=== PATIENT | male | born 1985 | race African-American/Black ===

== ENCOUNTER 2019-03-24 17:51 | Observation (INO) ==
[2019-03-24] MEDS ORDERED: hydrALAZINE 20 MG/1 ML VIAL IV STA (18:24)
[2019-03-24] MEDS ORDERED: MORPHINE 4 MG/1 ML VIAL IV STA (18:24)
[2019-03-24] MEDS ORDERED: FUROSEMIDE 40 MG/4 ML VIAL IV STA (18:24)
[2019-03-24] MEDS ORDERED: ASPIRIN 325 MG TABLET PO STA (18:24)
[2019-03-24] MEDS ORDERED: NITROGLYCERIN 2% OINT 1 INCH/GM PACK TOP STA (18:24)
[2019-03-24] MEDS ORDERED: ONDANSETRON 4 MG/2 ML VIAL IV STA (18:24)
[2019-03-24 19:06] LABS: Eosinophils # 0.2 10*3/uL (0.0-0.87); Eosinophils % 3.9 % (0.00-10.9); Hematocrit 37.8 VOL% (42.0-52.0); Hemoglobin 12.1 GM/DL (14.0-18.0); Immature Granulocytes Absolute 0.33 #; Lymphocytes % 25.1 % (21.2-54.2); Monocytes % 19.8 % (1.7-12.7); Neutrophils % 42.2 % (38.7-73.9); Platelet Count 66 T/CUMM (130-400); Red Cell Distribution Width 15.9 % (9.3-17.3); White Blood Count 4.2 T/CUMM (4-12)
[2019-03-24 19:19] LABS: Albumin 2.6 G/DL (3.4-5.0); Bilirubin,Total 9.7 MG/DL (0.2-1.0); Calcium 8.6 MG/DL (8.5-10.1); Osmolality,Calculated 275.5 MOS/KG (273-304); Total Protein 7.6 G/DL (6.4-8.3)
[2019-03-24 19:26] LABS: INR 1.3; PT Patient Result 14.3 SECS (9.6-12.2)
[2019-03-24 20:36] LABS: Eosinophils 5 % (0-10); Lymphocytes 27 % (20-55); Segmented Neutrophils 48 % (50-85); Total Cells Counted 100
[2019-03-24 20:37] LABS: Hypochromasia 2+; Platelet Estimate Adequate; Toxic Granulation 1+
[2019-03-24 20:38] LABS: Anisocytosis Slight; Polychromasia 1+
[2019-03-24 20:39] LABS: Reactive Lymphocytes 2+
[2019-03-24 21:01] LABS: Apearance,Urine CLEAR (Clear); Bacteria,Urine Occasional /HPF (Few); Bilirubin,Urine Negative (Negative); Blood, Urine Negative (Negative); Glucose,Urine (UA) Negative (Negative); Ketones,Urine Negative (Negative); Nitrite,Urine Negative (Negative); Protein,Urine Negative; RBC,Urine <1 /HPF (0-4); Squamous Epithelial Cell,Urine Occasional /HPF (0-10); Urine Color Yellow (Yellow); Urine Specific Gravity 1.012 (1.001-1.035); Urine Urobilinogen < 2.0 EU/DL (0.2-1.0); WBC,Urine <1 /HPF (0-6)
[2019-03-24 22:44] LABS: Hepatitis B Core IgM Quant 0.05 Index; Hepatitis B Surface Ag Quant < 0.10 Index; Hepatitis B Surface Ag Result Negative (Negative); Hepatitis C Virus Ab Quant 0.31 Index; Hepatitis C Virus Ab Result Negative (Negative)
[2019-03-24] MEDS ORDERED: ONDANSETRON 4 MG/2 ML VIAL IV PRN (23:03)
[2019-03-24] MEDS ORDERED: LABETALOL 20 MG/4 ML SYRINGE IV PRN (23:12)
[2019-03-25 07:50] LABS: Albumin 2.1 G/DL (3.4-5.0); Calcium 8.1 MG/DL (8.5-10.1); Osmolality,Calculated 274.5 MOS/KG (273-304); Total Protein 6.5 G/DL (6.4-8.3)
[2019-03-25] MEDS: FUROSEMIDE 40 MG/4 ML VIAL IV SCH (09:51)
[2019-03-25] MEDS: PANTOPRAZOLE 40 MG TABLET PO SCH (09:51)
[2019-03-25 13:13] LABS: Ferritin 248.8 ng/ml (26-388)
[2019-03-25] MEDS ORDERED: IBUPROFEN 800 MG TABLET PO PRN (17:54)
[2019-03-26 05:23] LABS: Albumin 2.1 G/DL (3.4-5.0); Bilirubin,Total 7.6 MG/DL (0.2-1.0); Calcium 7.8 MG/DL (8.5-10.1); Osmolality,Calculated 277.5 MOS/KG (273-304); Total Protein 6.7 G/DL (6.4-8.3)
[2019-03-26 08:27] VITALS: BP 143/72
[2019-03-26] MEDS: FUROSEMIDE 40 MG/4 ML VIAL IV SCH (09:13)
[2019-03-26] MEDS: PANTOPRAZOLE 40 MG TABLET PO SCH (09:13)
[2019-03-29 14:31] LABS: Mitochondrial Antibody (M2) <0.1 U
[2019-04-01 13:21] LABS: Smooth Muscle Antibody Positive 1:40 (Negative)
== END 2019-03-26 10:15 | disposition home or self-care (01) ==
LOC: N.ED 17:51 → N.EDINP 17:51 → N.2W 23:26
PROVIDERS: ADMIT Hospitalist; ATTEND Hospitalist

== ENCOUNTER 2019-07-28 19:20 | Inpatient (IN) ==
[2019-07-28 20:59] LABS: Basophils # 0.1 10*3/uL (0.0-0.2); Basophils % 0.4 % (0.0-0.8); Eosinophils % 25.4 % (0.00-10.9); Hematocrit 45.3 VOL% (42.0-52.0); Immature Granulocytes Absolute 0.12 #; Lymphocytes # 0.7 10*3/uL (1.4-4.0); Lymphocytes % 5.8 % (21.2-54.2); Mean Corpuscular HGB Conc 29.4 GM/DL (32-36); Mean Corpuscular Volume 99.3 FL (87-102); Mean Platelet Volume 13.2 FL (9.6-12.0); Monocytes % 2.4 % (1.7-12.7); NRBC # 0.08 10*3/uL; Platelet Count 150 T/CUMM (130-400); Red Blood Count 4.56 MC/CUMM (3.8-5.5); Red Cell Distribution Width 16.8 % (9.3-17.3); White Blood Count 11.8 T/CUMM (4-12)
[2019-07-28 21:01] LABS: Alanine Aminotransferase 60 U/L (16-61); Albumin 2.1 G/DL (3.4-5.0); Alkaline Phosphatase 130 U/L (45-117); Aspartate Amino Transferase 169 U/L (0-37); Blood Urea Nitrogen 18 MG/DL (7-18); Calcium 7.9 MG/DL (8.5-10.1); Estimated Glom Filtration Rate 44 ML/MIN; Osmolality,Calculated 268.1 MOS/KG (273-304)
[2019-07-28 21:02] LABS: Hemoglobin 13.3 GM/DL (14.0-18.0)
[2019-07-28 21:11] LABS: Glucose 36 MG/DL (74-106)
[2019-07-28] MEDS ORDERED: DEXTROSE 50% 25 GM/50 ML SYRINGE IV ONE ×2 (21:14→21:15)
[2019-07-28] MEDS ORDERED: PIPERACILLIN/TAZOBACTAM 3,375 MG in SODIUM CHLORIDE 0.9% 100 ML IV STA (21:43)
[2019-07-28 21:48] LABS: Band Neutrophils 29 % (0-10); Eosinophils 1 % (0-10); Lymphocytes 10 % (20-55); Metamyelocytes 1 %; Platelet Estimate Adequate; Polychromasia Slight; Segmented Neutrophils 53 % (50-85); Total Cells Counted 100; Toxic Granulation 1+
[2019-07-28] MEDS ORDERED: DEXTROSE 10% 1,000 ML IV SCH (22:00)
[2019-07-28] MEDS ORDERED: ONDANSETRON 4 MG/2 ML VIAL IV PRN (22:42)
[2019-07-28] MEDS ORDERED: ACETAMINOPHEN 325 MG TABLET PO PRN (22:42)
[2019-07-28] MEDS ORDERED: SODIUM CHLORIDE 0.9% 2,100 ML IV ONE (22:42)
[2019-07-28] MEDS ORDERED: ENOXAPARIN 120 MG/0.8 ML SYRINGE SUBCUT SCH (23:00)
[2019-07-28 23:24] LABS: ABG Base Excess -23.1 MMOL/L (-2.5-2.5); ABG HCO3 8.3 MMOL/L (20-26); ABG Oxygen Saturation 90.9 % (95-100); ABG PO2 79.8 MM HG (80-95); Allen Test Positive
[2019-07-28 23:37] LABS: ABG PH 7.026 (7.35-7.45)
[2019-07-28] MEDS ORDERED: DEXTROSE 50% 25 GM/50 ML VIAL IV ONE (23:38)
[2019-07-29] MEDS ORDERED: VANCOMYCIN INJ 2,000 MG in SODIUM CHLORIDE 0.9% 500 ML IV SCH
[2019-07-29] MEDS ORDERED: SODIUM BICARBONATE 50 MEQ/50 ML VIAL IV STA (00:07)
[2019-07-29] MEDS ORDERED: SODIUM CHLORIDE 0.9% 2,000 ML IV ONE (01:25)
[2019-07-29] MEDS ORDERED: SODIUM BICARBONATE 50 MEQ/50 ML VIAL IV ONE ×3 (01:30→05:14)
[2019-07-29] MEDS ORDERED: VECURONIUM 10 MG VIAL IV ONE (03:34)
[2019-07-29] MEDS ORDERED: ETOMIDATE 20 MG/10 ML VIAL IV ONE ×2 (03:34→03:45)
[2019-07-29] MEDS ORDERED: MIDAZOLAM 100 MG in SODIUM CHLORIDE 0.9% 80 ML IV PRN (03:49)
[2019-07-29] MEDS ORDERED: PHENYLEPHRINE DRIP 0 MG/0 ML PREMIX IV ONE (04:11)
[2019-07-29] MEDS ORDERED: NOREPINEPHRINE 4 MG/4 ML VIAL IV ONE (04:15)
[2019-07-29] MEDS: NOREPINEPHRINE 8 MG in SODIUM CHLORIDE 0.9% 242 ML IV PRN ×3 (04:24→10:02)
[2019-07-29] MEDS ORDERED: DEXTROSE 50% 25 GM/50 ML SYRINGE IV PRN (04:40)
[2019-07-29] MEDS ORDERED: SODIUM CHLORIDE 0.9% 1,000 ML IV SCH (05:00)
[2019-07-29 05:08] LABS: ABG Base Excess -20.3 MMOL/L (-2.5-2.5); ABG HCO3 9.7 MMOL/L (20-26); ABG Oxygen Saturation 99.5 % (95-100); ABG PCO2 31.3 MM HG (35-48); ABG TCO2 8.7 MMOL/L (23-27); Allen Test Positive; Pt O2 Delivery Device Ventilator
[2019-07-29] MEDS ORDERED: SODIUM BICARB INJ 150 MEQ in STERILE WATER INJ 850 ML IV SCH (06:00)
[2019-07-29 06:04] LABS: Apearance,Urine Slightly Hazy (Clear); Bilirubin,Urine Negative (Negative); Blood, Urine Negative (Negative); Glucose,Urine (UA) Negative (Negative); Hyaline Casts,Urine 3 /LPF (0-3); Ketones,Urine Negative (Negative); Mucus,Urine Occasional /LPF (Occasional); Nitrite,Urine Negative (Negative); Protein,Urine Negative; Squamous Epithelial Cell,Urine Occasional /HPF (0-10); Urine Color Amber (Yellow); Urine Specific Gravity 1.013 (1.001-1.035); Urine Urobilinogen < 2.0 EU/DL (0.2-1.0); WBC,Urine 3 /HPF (0-6)
[2019-07-29 07:22] LABS: Basophils % 0.3 % (0.0-0.8); Eosinophils # 1.4 10*3/uL (0.0-0.87); Eosinophils % 13.5 % (0.00-10.9); Hematocrit 38.4 VOL% (42.0-52.0); Immature Granulocytes % 1.3 %; Immature Granulocytes Absolute 0.13 #; Lymphocytes # 0.6 10*3/uL (1.4-4.0); Lymphocytes % 5.3 % (21.2-54.2); Mean Corpuscular HGB Conc 29.2 GM/DL (32-36); Mean Corpuscular Volume 98.7 FL (87-102); Mean Platelet Volume 12.6 FL (9.6-12.0); Monocytes % 3.5 % (1.7-12.7); NRBC # 0.15 10*3/uL; Neutrophils % 76.1 % (38.7-73.9); Red Blood Count 3.89 MC/CUMM (3.8-5.5); Red Cell Distribution Width 16.6 % (9.3-17.3); White Blood Count 10.4 T/CUMM (4-12)
[2019-07-29 07:23] LABS: Hemoglobin 11.2 GM/DL (14.0-18.0); Platelet Count 73 T/CUMM (130-400)
[2019-07-29 07:27] LABS: Albumin 1.3 G/DL (3.4-5.0); Bilirubin,Total 5.4 MG/DL (0.2-1.0); Calcium 7.1 MG/DL (8.5-10.1); Osmolality,Calculated 269.1 MOS/KG (273-304)
[2019-07-29 07:31] LABS: Band Neutrophils 53 % (0-10); Lymphocytes 11 % (20-55); Metamyelocytes 11 %; Myelocytes 2 %; Nucleated Red Blood Cells 3 (0-5); Platelet Estimate Decreased; Segmented Neutrophils 18 % (50-85); Total Cells Counted 100
[2019-07-29 07:33] LABS: Macrocytosis 1+; Smudge Cells Few
[2019-07-29 07:34] LABS: Anisocytosis Slight; Polychromasia Slight
[2019-07-29] MEDS ORDERED: ENOXAPARIN 120 MG/0.8 ML SYRINGE SUBCUT ONE (07:55)
[2019-07-29] MEDS ORDERED: FUROSEMIDE 40 MG/4 ML VIAL IV SCH (08:00)
[2019-07-29] MEDS ORDERED: PIPERACILLIN/TAZOBACTAM 3,375 MG in SODIUM CHLORIDE 0.9% 100 ML IV SCH (08:00)
[2019-07-29] MEDS ORDERED: SODIUM BICARB INJ 150 MEQ in DEXTROSE 5% 850 ML IV SCH (08:30)
[2019-07-29] MEDS: PHENYLEPHRINE DRIP 40 MG/250 ML PREMIX IV PRN ×2 (08:44→10:51)
[2019-07-29] MEDS ORDERED: ENOXAPARIN 120 MG/0.8 ML SYRINGE SUBCUT SCH (09:00)
[2019-07-29] MEDS ORDERED: PANTOPRAZOLE 40 MG VIAL IV SCH (09:00)
[2019-07-29] MEDS ORDERED: CISATRACURIUM 200 MG in SODIUM CHLORIDE 0.9% 180 ML IV SCH (09:30)
[2019-07-29] MEDS ORDERED: EPINEPHrine 1 MG/ML VIAL ONE (09:46)
[2019-07-29] MEDS ORDERED: SODIUM CHLORIDE 0.9% 500 ML IV ONE (10:52)
[2019-07-29 12:29] VITALS: BP 81/50
[2019-07-29] MEDS ORDERED: LORazepam 2 MG/1 ML VIAL IV ONE (13:03)
[2019-07-29] MEDS ORDERED: MORPHINE 4 MG/1 ML VIAL IV ONE (13:03)
[2019-07-30] MEDS ORDERED: VANCOMYCIN INJ 2,000 MG in SODIUM CHLORIDE 0.9% 500 ML IV SCH
[2019-07-30] MEDS ORDERED: ENOXAPARIN 60 MG/0.6 ML SYRINGE SUBCUT SCH (09:00)
== END 2019-07-29 13:34 | disposition expired | DRG 871 ==
LOC: N.ED 19:20 → SUATTDRO 22:42 → N.EDINP 22:42 → N.ICU 23:25
PROVIDERS: ADMIT Internal Medicine; ATTEND Internal Medicine